=== PATIENT | male | born 1990 ===

== ENCOUNTER 2019-07-01 12:18 | Emergency (ER) | payer SELFPAY ==
[2019-07-01] MEDS ORDERED: NA CHLORIDE 0.9% 1,000 ML ONE (13:31)
[2019-07-01 14:06] LABS: Absolute Lymphocytes (CBC) 2.6 K/uL (0.7-4.9); BUN Blood Urea Nitrogen 11 mg/dL (7-18); Basophils % 0.4 % (0-1.3); Bicarbonate 27 mmol/L (21-32); Glucose Level 85 mg/dL (74-106); Hematocrit 47.7 % (39.6-49.0); Lymphocytes % 28.6 % (15.3-44.8); MPV 11.3 fL (7.6-11.3); Potassium 3.9 mmol/L (3.5-5.1); RBC Red Blood Cell Count 5.42 M/uL (4.33-5.43); Sodium Level 140 mmol/L (136-145)
--- NOTE | 2019-07-01 14:41 | RAD REPORT ---
EXAM DESCRIPTION: Nnamdi Single View07/01/2019 2:33 pm CLINICAL HISTORY: Syncope COMPARISON: none FINDINGS: The lungs appear clear of acute infiltrate. The heart is normal size IMPRESSION: No acute abnormalities displayed
--- NOTE | 2019-07-01 15:03 | EDPHYS ---
Physician Documentation [facility] Name: Greg Jaramillo Age: 28 yrs Sex: Male : 1990 Arrival Date: 07/01/2019 Time: 12:22 Bed 13 Private MD: ED Physician Ilya Cabrera HPI: 06/30 13:22 This 28 yrs old Male presents to ER via Ambulatory with complaints of near la1 syncope. 13:22 The patient has experienced near-syncope, almost passed out, felt faint. Onset: The la1 symptoms/episode began/occurred yesterday. Duration: This was a single episode. Context: occurred at work. Associated injury: The patient did not suffer any apparent associated injury. Associated signs and symptoms: The patient has no apparent associated signs or symptoms. Current symptoms: feels "lightheaded". The patient has not experienced similar symptoms in the past. Historical: - Allergies: 12:58 No Known Allergies; jl7 - Home Meds: 12:58 None [Active]; jl7 - PMHx: 12:58 None; jl7 - PSHx: 12:58 None; jl7 - Immunization history:: Adult Immunizations unknown. - Social history:: Smoking status: Patient reports the use of cigarette tobacco products, smokes one pack cigarettes per day. ROS: 13:23 Constitutional: Negative for fever, chills, and weight loss, Eyes: Negative for injury, la1 pain, redness, and discharge, ENT: Negative for injury, pain, and discharge, Neck: Negative for injury, pain, and swelling, Cardiovascular: Negative for chest pain, palpitations, and edema, Respiratory: Negative for shortness of breath, cough, wheezing, and pleuritic chest pain, Abdomen/GI: Negative for abdominal pain, nausea, vomiting, diarrhea, and constipation, Back: Negative for injury and pain, MS/Extremity: Negative for injury and deformity, Skin: Negative for injury, rash, and discoloration, Neuro: Negative for headache, weakness, numbness, tingling, and seizure. Exam: 13:23 Constitutional: This is a well developed, well nourished patient who is awake, alert, la1 and in no acute distress. Head/Face: Normocephalic, atraumatic. Eyes: Pupils equal round and reactive to light, extra-ocular motions intact. Lids and lashes normal. Conjunctiva and sclera are non-icteric and not injected. Cornea within normal limits. Periorbital areas with no swelling, redness, or edema. ENT: Mucous membranes moist. Chest/axilla: Normal chest wall appearance and motion. Nontender with no deformity. No lesions are appreciated. Cardiovascular: Regular rate and rhythm with a normal S1 and S2. No gallops, murmurs, or rubs. Normal PMI, no JVD. No pulse deficits. Respiratory: Lungs have equal breath sounds bilaterally, clear to auscultation Abdomen/GI: Soft, non-tender, with normal bowel sounds. No distension Skin: Warm, dry with normal turgor. Normal color with no rashes, no lesions, and no evidence of cellulitis. MS/ Extremity: Pulses equal, no cyanosis. Neurovascular intact. Full, normal range of motion. Vital Signs: 12:55 BP 123 / 73; Pulse 69; Resp 16 S; Temp 98.4(O); Pulse Ox 98% on R/A; Weight 96.62 kg 7 (R); Height 5 ft. 8 in. (172.72 cm); Pain 0/10; 13:36 BP 105 / 74 Supine; Pulse 61; Resp 16; Pulse Ox 98% on R/A; mh5 13:36 BP 111 / 78 Sitting; Pulse 73; Resp 16; Pulse Ox 98% on R/A; mh5 13:36 BP 116 / 80 Standing; Pulse 81; Resp 16; Pulse Ox 95% on R/A; mh5 14:23 BP 110 / 82; Pulse 68; Resp 16; Temp 97.8(TE); Pulse Ox 97% ; mh5 15:22 BP 102 / 76; Pulse 80; Resp 17; Pulse Ox 100% on R/A; mg2 12:55 Body Mass Index 32.39 (96.62 kg, 172.72 cm) 7 MDM: 13:06 Patient medically screened. la1 14:59 Differential Diagnosis: cardiac arrhythmia, vasovagal episode, hypoglycemia, la1 orthostatic hypotension. Data reviewed: vital signs, nurses notes, lab test result(s), EKG, radiologic studies, and as a result, I will discharge patient. Data interpreted: Pulse oximetry: on room air is 97 %. Counseling: I had a detailed discussion with the patient and/or guardian regarding: the historical points, exam findings, and any diagnostic results supporting the discharge/admit diagnosis, lab results, radiology results, the need for outpatient follow up, a family practitioner, to return to the emergency department if symptoms worsen or persist or if there are any questions or concerns that arise at home. Special discussion: Based on the history and exam findings, there is no indication for further emergent testing or inpatient evaluation. I discussed with the patient/guardian the need to see the primary care provider for further evaluation of the symptoms. 06/30 13:12 Order name: CBC with Diff la1 06/30 13:12 Order name: BMP la1 06/30 13:12 Order name: Chest Single View XRAY la1 06/30 13:18 Order name: Glucose, Ancillary Testing; Complete Time: 14:30 EDMS 06/30 14:11 Order name: Basic Metabolic Panel; Complete Time: 14:30 EDMS 06/30 14:22 Order name: CBC with Automated Diff; Complete Time: 14:30 EDMS 06/30 13:12 Order name: EKG - Nurse/Tech; Complete Time: 14:47 la1 06/30 13:12 Order name: IV; Complete Time: 13:43 la1 06/30 13:12 Order name: Orthostatics: before fluids please; Complete Time: 13:42 la1 Administered Medications: 13:42 Drug: NS 0.9% 1000 ml Route: IV; Rate: 1000 ml; Site: right antecubital; mg2 Point of Care Testing: Blood Glucose: 12:58 Blood Glucose: 79 mg/dL; jl7 Ranges: Critical Glucose Levels:Adult <50 mg/dl or >400 mg/dl <40 mg/dl or >180 mg/dl Disposition: 17:18 Co-signature as Attending Physician, Ilya Cabrera MD I agree with the assessment and kdr plan of care. Disposition: 07/01/19 15:01 Discharged to Home. Impression: Dizziness and giddiness. - Condition is Stable. - Discharge Instructions: Near-Syncope, Near-Syncope, [id number]. - Work release form, Medication Reconciliation Form, Thank You Letter form. - Follow up: Private Physician; When: 2 - 3 days; Reason: Recheck today's complaints, Re-evaluation by your physician. - Problem is new. - Symptoms have improved. Signatures: Dispatcher [employer] EDMS Ilya Cabrera MD MD kdr Ford Sanders, RADIO TIME SALESPERSON-C RADIO TIME SALESPERSON-Cla1 Melina Kirk, RN RN jl7 Suresh Vo RN RN mg2 Corrections: (The following items were deleted from the chart) 12:45 Allergies: Naproxen; jl7 jl7 12:45 Home Meds: None; [place] [id number] 12:45 PMHx: None; [place] [id number] 12:45 PSHx: None; [place] [id number] 12:45 Immunization history: Adult Immunizations up to date, [place] [id number] 12:45 Social history: Smoking status: Patient denies any tobacco usage or history of. [facility] jl7 15:25 15:01 07/01/2019 15:01 Discharged to Home. Impression: Dizziness and giddiness. mg2 Condition is Stable. Forms are Medication Reconciliation Form, Thank You Letter, Antibiotic Education, Prescription Opioid Use. Follow up: Private Physician; When: 2 - 3 days; Reason: Recheck today's complaints, Re-evaluation by your physician. Problem is new. Symptoms have improved. la1
--- NOTE | 2019-07-01 15:03 | ER ---
Nurse's Notes [facility] Name: Greg Jaramillo Age: 28 yrs Sex: Male : 1990 Arrival Date: 07/01/2019 Time: 12:22 Bed 13 Private MD: Diagnosis: Dizziness and giddiness Presentation: 06/30 12:55 Chief complaint: Patient states: Standing at work yesterday and felt like I was about jl to pass out 2 times so I told them I am not coming tomorrow because I am going to get checked out. Reports "I feel like my whole body is light.". Coronavirus screen: The patient has NOT traveled to a country currently being monitored by the [facility] within the last 14 days. Proceed with normal triage procedures. Ebola Screen: No symptoms or risks identified at this time. No acute neurological deficit is noted. Pre-hospital glucose is not applicable to this patient. Initial Sepsis Screen: Does the patient meet any 2 criteria? No. Patient's initial sepsis screen is negative. Does the patient have a suspected source of infection? No. Patient's initial sepsis screen is negative. Risk Assessment: Do you want to hurt yourself or someone else? Patient reports no desire to harm self or others. Onset of symptoms was June 30, 2019. 12:55 Method Of Arrival: Ambulatory [facility] 12:55 Acuity: NAHED 3 jl7 Triage Assessment: 12:58 The onset of the patients symptoms was June 30, 2019 at 14:30. General: Appears in no jl7 apparent distress. uncomfortable, Behavior is calm, cooperative, appropriate for age. Pain: Denies pain. Neuro: Level of Consciousness is awake, alert, obeys commands, Oriented to person, place, time, situation, Moves all extremities. Full function Gait is steady, Speech is normal, Reports "I feel light.". Cardiovascular: Patient's skin is warm and dry. Respiratory: Airway is patent Respiratory effort is even, unlabored, Respiratory pattern is regular, symmetrical. Derm: Skin is pink, warm \\T\\ dry. Stroke Activation: Symptom onset > 6 hours Physician: Stroke Attending; Name: ; Notified At: ; Arrived At: Physician: Chief Stroke Resident; Name: ; Notified At: ; Arrived At: Physician: Stroke Resident; Name: ; Notified At: ; Arrived At: Physician: ED Attending; Name: ; Notified At: ; Arrived At: Physician: ED Resident; Name: ; Notified At: ; Arrived At: Historical: - Allergies: 12:58 No Known Allergies; jl7 - Home Meds: 12:58 None [Active]; jl7 - PMHx: 12:58 None; jl7 - PSHx: 12:58 None; jl7 - Immunization history:: Adult Immunizations unknown. - Social history:: Smoking status: Patient reports the use of cigarette tobacco products, smokes one pack cigarettes per day. Screenin:44 Abuse screen: Denies threats or abuse. Denies injuries from another. Nutritional mg2 screening: No deficits noted. Tuberculosis screening: No symptoms or risk factors identified. Fall Risk IV access (20 points). Assessment: 13:44 General: Appears in no apparent distress. comfortable, Behavior is calm, cooperative. mg2 Pain: Denies pain. Neuro: Level of Consciousness is awake, alert, obeys commands, Oriented to person, place, time, situation. Neuro: Reports black out almost passing out yesterday. Cardiovascular: Capillary refill < 3 seconds Patient's skin is warm and dry. Respiratory: Airway is patent Respiratory effort is even, unlabored, Respiratory pattern is regular, symmetrical. GI: No signs and/or symptoms were reported involving the gastrointestinal system. : No signs and/or symptoms were reported regarding the genitourinary system. EENT: No signs and/or symptoms were reported regarding the EENT system. Derm: Skin is intact, is healthy with good turgor, Skin is pink, warm \\T\\ dry. normal. Musculoskeletal: Circulation, motion, and sensation intact. Capillary refill < 3 seconds. 15:22 Reassessment: Patient appears in no apparent distress at this time. Patient states mg2 feeling better. Vital Signs: 12:55 BP 123 / 73; Pulse 69; Resp 16 S; Temp 98.4(O); Pulse Ox 98% on R/A; Weight 96.62 kg jl7 (R); Height 5 ft. 8 in. (172.72 cm); Pain 0/10; 13:36 BP 105 / 74 Supine; Pulse 61; Resp 16; Pulse Ox 98% on R/A; mh5 13:36 BP 111 / 78 Sitting; Pulse 73; Resp 16; Pulse Ox 98% on R/A; mh5 13:36 BP 116 / 80 Standing; Pulse 81; Resp 16; Pulse Ox 95% on R/A; mh5 14:23 BP 110 / 82; Pulse 68; Resp 16; Temp 97.8(TE); Pulse Ox 97% ; mh5 15:22 BP 102 / 76; Pulse 80; Resp 17; Pulse Ox 100% on R/A; mg2 12:55 Body Mass Index 32.39 (96.62 kg, 172.72 cm) jl7 ED Course: 12:22 Patient arrived in ED. ag5 12:44 Triage completed. jl7 12:58 Arm band placed on right wrist. jl7 13:00 Ford Sanders FNP-C is [facility]. la1 13:00 Ilya Cabrera MD is Attending Physician. la1 13:17 Suresh Vo, RN is Primary Nurse. mg2 13:30 Inserted saline lock: 20 gauge in right antecubital area, using aseptic technique. mg2 Blood collected. 13:44 No provider procedures requiring assistance completed. mg2 13:45 Patient has correct armband on for positive identification. mg2 14:37 EKG done, by radiologic technician. reviewed by Ford PATEL. at1 15:23 IV discontinued, intact, bleeding controlled, No redness/swelling at site. Pressure mg2 dressing applied. Administered Medications: 13:42 Drug: NS 0.9% 1000 ml Route: IV; Rate: 1000 ml; Site: right antecubital; mg2 Point of Care Testing: Blood Glucose: 12:58 Blood Glucose: 79 mg/dL; jl7 Ranges: Outcome: 15:01 Discharge ordered by . la1 15:25 Discharged to home ambulatory, with family. mg2 15:25 Condition: stable 15:25 Discharge instructions given to patient, family, Instructed on discharge instructions, follow up and referral plans. Demonstrated understanding of instructions, follow-up care. 15:25 Patient left the ED. mg2 Signatures: Gala Farnsworth, health promotion officer EKG Tat1 Ford Sanders FNP-C FNP-Cla1 Nieves Chavez 5 Melina Kirk, RN RN jl7 Suresh Vo, ALO RN mg2 Renetta Newton 5 Corrections: (The following items were deleted from the chart) 12:51 12:37 Chief complaint: Patient states: Upper abdominal pain, N/V/D, dizziness and jl trouble walking since Friday [facility] 12:37 Coronavirus screen: The patient has NOT traveled to a country currently being [facility] monitored by the [facility] within the last 14 days. Proceed with normal triage procedures. [facility] 12:37 Ebola Screen: No symptoms or risks identified at this time. [place] [id number] 12:37 No acute neurological deficit is noted. The patients blood glucose was checked [facility] before arriving to the hospital and was found to be normal. [facility] 12:37 Initial Sepsis Screen: Does the patient meet any 2 criteria? No. Patient's [facility] initial sepsis screen is negative. Does the patient have a suspected source of infection? No. Patient's initial sepsis screen is negative. [facility] 12:37 Risk Assessment: Do you want to hurt yourself or someone else? Patient reports no [facility] desire to harm self or others. [facility] 12:37 Onset of symptoms was June 29, 2019 [place] [id number] 12:37 Care prior to arrival: None. [place] [id number] 12:37 Method Of Arrival: Wheelchair [place] [id number] 12:37 BP 153 / 77; Pulse 71bpm; Resp 22bpm; Spontaneous; Pulse Ox 100% RA; Temp 97.2F [facility] Oral; 77.11 kg Reported; Height 5 ft. 0 in. Reported; BMI: 33.2; Pain 10/10; [facility] : 12:37 Stroke Activation: Symptom onset > 6 hours [place] [id number] 12:37 Acuity: NAHED 3 [place] [id number] 12:45 Allergies: Naproxen; [place] [address] 12:45 Home Meds: None; [place] [address] 12:45 PMHx: None; [place] [address] 12:45 PSHx: None; [place] [address] 12:45 Immunization history: Adult Immunizations up to date, [place] [id number] 12:45 Social history: Smoking status: Patient denies any tobacco usage or history of. [place] [id number] 12:45 The onset of the patients symptoms was June 29, 2019 at 12:00 [place] [id number] 12:45 General: Appears in no apparent distress. uncomfortable, Behavior is cooperative, jl7 anxious, [facility] 12:45 Pain: Complains of pain in right upper quadrant and left upper quadrant Pain jl currently is 10 out of [address] scale[address] [facility] 12:45 Neuro: Reports dizziness, weakness jl7 [facility] 12:45 Cardiovascular: Patient's skin is warm and dry. 7 [facility] 12:45 Respiratory: Airway is patent Respiratory effort is even, unlabored, Respiratory [facility] pattern is regular, symmetrical, [facility] : 12:45 Derm: Skin is pink, warm \\T\\ dry. 7 [facility] 12:45 Blood Glucose: Blood Glucose Reading=82 mg/dL. [place] [id number] 12:45 Arm band placed on right wrist. 7 jl7
[2019-07-01 16:19] VITALS: BP 102/76; O2SAT 100
[2019-07-01 16:20] VITALS: TEMP 97.8
--- NOTE | 2019-07-02 12:33 | EKG ---
Test Date: 2019-07-01 Test Time: 14:18:05 Kennel Staff Member: CORTNEY MEASUREMENT RESULTS: Intervals: Rate: 58 NE: 134 QRSD: 90 QT: 418 QTc: 410 [place]: P: 30 NE: 134 QRS: 59 T: 39 INTERPRETIVE STATEMENTS: Sinus bradycardia with sinus arrhythmia ST elevation, probably due to early repolarization Borderline ECG No previous ECG available for comparison Electronically Signed On 07-02-19 12:30:55 CDT by Harrison Loyd
== END 2019-07-01 15:25 | disposition home or self-care (01) ==
LOC: ER 12:18
DX: R42 Dizziness and giddiness (principal); F17.210 Nicotine dependence, cigarettes, uncomplicated
CPT/HCPCS: 36415; 71045; 80048; 82947; 85025; 93005; 99284; J7030